=== PATIENT | male | born 1945 | race Caucasian/White ===

== ENCOUNTER 2021-01-29 07:08 | Inpatient (IN) | payer MEDICARE, OTHER ==
[~2021-01-29] VITALS: Ht 172.7 cm; Wt 124.9 kg
[~2021-01-29 07:08] MED LIST: ECOTRIN81 MG PO; LASIX40 MG PO; LOPRESSOR 25 MG25 MG PO; METHOCARBAMOL500 MG PO; PERCOCET 5/325 T1 EA PO; PREDNISONE 20 M20 MG PO; PRINIVIL20 MG PO; SYMBICORT 160-1 INHA INH; TYLENOL 500 MG500 MG PO; VENTOLIN HFA 66.7 GM INH
[2021-01-29 08:11] LABS: HEMOGLOBIN 11.4 gm/dl (14.0-17.5); RED BLOOD COUNT 4.33 M/UL (4.20-5.50); WHITE BLOOD COUNT 9.4 K/UL (4.5-11.0)
[2021-01-29] MEDS ORDERED: VITAMIN D250 MCG PO (12:46)
[2021-01-29] MEDS ORDERED: FERROUS SULFAT325 M2 PO (12:47)
[2021-01-29] MEDS ORDERED: ALDACTONE 25MG25 MG PO (12:48)
[2021-01-29] MEDS ORDERED: LASIX20 MG PO (12:48)
[2021-01-29] MEDS ORDERED: COZAAR 50MG TAB50 MG PO (12:49)
[2021-01-29] MEDS ORDERED: PREDNISOLONE ACE5 ML EYEBOTH (12:49)
[2021-01-29] MEDS ORDERED: LISINOPRIL20 MG PO (12:50)
[2021-01-30 05:06] LABS: HEMOGLOBIN 10.9 gm/dl (14.0-17.5); RED BLOOD COUNT 4.19 M/UL (4.20-5.50)
[2021-01-30 05:10] LABS: WHITE BLOOD COUNT 13.8 K/UL (4.5-11.0)
[2021-02-01 20:22] LABS: RED BLOOD COUNT 4.59 M/UL (4.20-5.50)
[2021-02-02 05:17] LABS: BUN/CREATININE RATIO 17 (0-10)
[2021-02-03 04:42] LABS: BUN/CREATININE RATIO 17 (0-10)
[2021-02-03] MEDS ORDERED: METOPROLOL SUCC25 MG PO (11:01)
[2021-02-03] MEDS ORDERED: ASPIRIN EC81 MG PO (11:01)
[2021-02-03] MEDS ORDERED: ATORVASTATIN CA20 MG PO (11:01)
== END 2021-02-03 13:45 | disposition home or self-care (01) | DRG 291 ==
LOC: ER1 07:08 → CDU 11:19 → MED SURG 4 11:19
PROVIDERS: Emergency Medicine; Internal Medicine; Physician Assistant; ADMIT Internal Medicine
DX: I13.0 Hypertensive heart and chronic kidney disease with heart failure and stage 1 through stage 4 chronic kidney disease, or unspecified chronic kidney disease (principal); I50.33 Acute on chronic diastolic (congestive) heart failure; J18.9 Pneumonia, unspecified organism; J96.21 Acute and chronic respiratory failure with hypoxia; J96.11 Chronic respiratory failure with hypoxia; E66.2 Morbid (severe) obesity with alveolar hypoventilation; J44.0 Chronic obstructive pulmonary disease with (acute) lower respiratory infection; N17.9 Acute kidney failure, unspecified; L03.119 Cellulitis of unspecified part of limb; Z68.41 Body mass index [BMI] 40.0-44.9, adult; Z20.822 Contact with and (suspected) exposure to COVID-19; M10.9 Gout, unspecified; N18.30 Chronic kidney disease, stage 3 unspecified; I16.0 Hypertensive urgency; M20.5X2 Other deformities of toe(s) (acquired), left foot; I27.20 Pulmonary hypertension, unspecified; M20.5X1 Other deformities of toe(s) (acquired), right foot; F17.210 Nicotine dependence, cigarettes, uncomplicated; Z91.14 Patient's other noncompliance with medication regimen; I34.0 Nonrheumatic mitral (valve) insufficiency; Z99.81 Dependence on supplemental oxygen; Z88.0 Allergy status to penicillin; Z80.9 Family history of malignant neoplasm, unspecified; Z79.82 Long term (current) use of aspirin
CPT/HCPCS: 0240U; 36415; 36600; 71045; 71046; 80048; 80053; 82550; 82553; 82803; 83874; 83880; 84484; 85025; 85027; 93005; 94664; 94760; 96374; 96375; 97110-GP-CQ; 97112-GP-CQ; 97116-GP-CQ; 97161; 97530; 97530-GP-CQ; 99285; J0360; J0456; J0696; J1940; J7030

== ENCOUNTER 2021-05-02 22:41 | Inpatient (IN) | payer MEDICARE, OTHER ==
[~2021-05-02] VITALS: Ht 172.7 cm; Wt 136.1 kg
[~2021-05-02 22:41] MED LIST changes: +ALDACTONE 25MG25 MG PO; +ASPIRIN EC81 MG PO; +ATORVASTATIN CA20 MG PO; +COZAAR 50MG TAB50 MG PO; +FERROUS SULFAT325 M2 PO; +LASIX20 MG PO; +LISINOPRIL20 MG PO; +METOPROLOL SUCC25 MG PO; +PREDNISOLONE ACE5 ML EYEBOTH; +VITAMIN D250 MCG PO
[2021-05-02 23:03] LABS: HEMOGLOBIN 12.2 gm/dl (14.0-17.5); RED BLOOD COUNT 4.77 M/UL (4.20-5.50); WHITE BLOOD COUNT 8.2 K/UL (4.5-11.0)
[2021-05-03] MEDS ORDERED: LIPITOR40 MG PO (09:45)
[2021-05-03] MEDS ORDERED: LASIX20 MG PO (10:23)
[2021-05-04 10:44] LABS: HEMOGLOBIN 12.8 gm/dl (14.0-17.5); RED BLOOD COUNT 4.92 M/UL (4.20-5.50)
[2021-05-04 10:47] LABS: WHITE BLOOD COUNT 13.2 K/UL (4.5-11.0)
[2021-05-04 11:07] LABS: BUN/CREATININE RATIO 22 (0-10)
[2021-05-05 04:09] LABS: HEMOGLOBIN 12.4 gm/dl (14.0-17.5); RED BLOOD COUNT 4.81 M/UL (4.20-5.50); WHITE BLOOD COUNT 12.3 K/UL (4.5-11.0)
[2021-05-05 04:32] LABS: BUN/CREATININE RATIO 21 (0-10)
[2021-05-06 04:02] LABS: HEMOGLOBIN 11.8 gm/dl (14.0-17.5); RED BLOOD COUNT 4.61 M/UL (4.20-5.50); WHITE BLOOD COUNT 10.1 K/UL (4.5-11.0)
[2021-05-06 04:09] LABS: (LD) FRACTION 1 29 % (17-32); (LD) FRACTION 2 40 % (25-40); (LD) FRACTION 3 19 % (17-27); (LD) FRACTION 4 6 % (5-13); (LD) FRACTION 5 6 % (4-20); CK-BB 0 % (0); CK-MB 2 % (0-3); CK-MM 98 % (97-100); LDH 338 IU/L (121-224); MACRO TYPE 1 0 % (Not Observed); MACRO TYPE 2 0 % (Not Observed)
[2021-05-06 04:32] LABS: BUN/CREATININE RATIO 19 (0-10)
[2021-05-07 07:24] LABS: HEMOGLOBIN 12.7 gm/dl (14.0-17.5); WHITE BLOOD COUNT 10.8 K/UL (4.5-11.0)
[2021-05-07 07:27] LABS: RED BLOOD COUNT 5.11 M/UL (4.20-5.50)
[2021-05-07] MEDS ORDERED: IPRAT-ALBUT 0.5-3 ML NEB (11:17)
[2021-05-07] MEDS ORDERED: ELIQUIS 2.5 MG2.5 MG PO (11:17)
[2021-05-07] MEDS ORDERED: AMLODIPINE BESYL5 MG PO (11:17)
[2021-05-07] MEDS ORDERED: DEXAMETHASONE2 MG PO (11:17)
[2021-05-07] MEDS ORDERED: BUDESONIDE0.5 MG/2 M NEB (11:17)
[2021-05-07] MEDS ORDERED: NEBULIZER UNIT INH (11:28)
[2021-05-08 07:51] LABS: HEMOGLOBIN 12.9 gm/dl (14.0-17.5); RED BLOOD COUNT 4.98 M/UL (4.20-5.50); WHITE BLOOD COUNT 11.3 K/UL (4.5-11.0)
[2021-05-08 08:25] LABS: BUN/CREATININE RATIO 27 (0-10)
[2021-05-08] MEDS ORDERED: LEVOFLOXACIN750 MG PO (09:27)
== END 2021-05-08 09:50 | disposition home health service (06) | DRG 177 ==
LOC: ER1 22:41 → MED SURG 4 05-03 01:05 → CDU 05-03 01:05 → MED SURG 4 05-03 18:38
PROVIDERS: Emergency Medicine; Internal Medicine; ADMIT Internal Medicine
PROC: 3E0333Z Introduction of Anti-inflammatory into Peripheral Vein, Percutaneous Approach (ICD-10-PCS; principal; 2021-05-03)
PROC: XW033E5 Introduction of Remdesivir Anti-infective into Peripheral Vein, Percutaneous Approach, New Technology Group 5 (ICD-10-PCS; 2021-05-03)
PROC: 8E0ZXY6 Isolation (ICD-10-PCS; 2021-05-03)
PROC: B24BZZ4 Ultrasonography of Heart with Aorta, Transesophageal (ICD-10-PCS; 2021-05-04)
DX: U07.1 COVID-19 (principal); J12.82 Pneumonia due to coronavirus disease 2019; G93.41 Metabolic encephalopathy; J96.21 Acute and chronic respiratory failure with hypoxia; I50.33 Acute on chronic diastolic (congestive) heart failure; N17.9 Acute kidney failure, unspecified; M62.82 Rhabdomyolysis; I13.0 Hypertensive heart and chronic kidney disease with heart failure and stage 1 through stage 4 chronic kidney disease, or unspecified chronic kidney disease; Z68.41 Body mass index [BMI] 40.0-44.9, adult; I27.20 Pulmonary hypertension, unspecified; N18.30 Chronic kidney disease, stage 3 unspecified; E66.9 Obesity, unspecified; D69.59 Other secondary thrombocytopenia; M10.9 Gout, unspecified; I25.10 Atherosclerotic heart disease of native coronary artery without angina pectoris; J44.9 Chronic obstructive pulmonary disease, unspecified; G47.33 Obstructive sleep apnea (adult) (pediatric); R00.1 Bradycardia, unspecified; Z79.82 Long term (current) use of aspirin; Z79.01 Long term (current) use of anticoagulants; Z71.6 Tobacco abuse counseling; Z95.5 Presence of coronary angioplasty implant and graft; Z88.0 Allergy status to penicillin
CPT/HCPCS: ECHO; 36415; 36600; 70450; 71045; 80053; 82550; 82552; 82553; 82728; 82803; 82962; 83605; 83615; 83625; 83690; 83735; 83874; 83880; 84100; 84439; 84443; 84484; 85025; 85379; 86140; 87040; 93005; 93306; 94640; 94760; 97110-GP-CQ; 97116-GP-CQ; 97162; 99285; J1100; J1650; J1940; J1956; J7030; U0002